=== PATIENT | female | born 1945 | race Caucasian/White ===

== ENCOUNTER 2019-09-11 18:55 | Inpatient (IN) ==
[2019-09-11] MEDS ORDERED: SOLU-MEDROL IV ONE (19:11)
[2019-09-11] MEDS ORDERED: XOPENEX NEB INH ONE (19:11)
[2019-09-11] MEDS ORDERED: NS NEB INH SCH (19:15)
[2019-09-11 19:19] LABS: ALLEN TEST YES; BE -4.7 mmoll (-3.0-3.0); BLOOD TYPE ARTERIAL; HCO3-(ACT) 21.1 mmoll (20.0-26.0); METHB 1.3 % (0.0-1.5); O2(CT) 17.7 mL/dL (15.0-23.0); O2HB 92.8 % (95.0-99.0); PCO2(98.6) 49 mmHg (35-45); PO2(98.6) 182 mmHg (60-100); SAMPLE BLOOD; SAO2 99.6 % (95.0-100.0); THB 13.3 g/dL (11.5-17.4); pH(98.6) 7.27 (7.35-7.45)
[2019-09-11 19:23] LABS: MODALITY BI PAP
--- NOTE | 2019-09-11 19:52 | Diag Imaging Result Doc PS360 ---
EXAM: CHEST-PORTABLE INDICATION: sob TECHNIQUE: One view COMPARISON: 10/10/2015 FINDINGS: There are large masslike lesions seen in the right midlung zone and the left lung apex. These are suspicious for neoplasm. There were not present on the previous study from 2016. There is no discrete pleural fluid collection or pneumothorax. The cardiomediastinal silhouette and central vasculature are grossly unremarkable. IMPRESSION: Large masses in the right midlung zone and left lung apex as described. Electronically signed by Yonas Diaz 09/11/2019 7:50 PM
[2019-09-11 20:03] LABS: BASO% 0.6 % (0.0-0.8); EOS# 0.45 X1000 (0.0-0.7); EOS% 2.9 % (0.0-10.0); HEMATOCRIT 43.1 % (37.0-47.0); HEMOGLOBIN 13.3 g/dL (12.0-16.0); IMM GRAN% 1.3 % (0.0-0.5); LYMPH# 3.11 X1000 (1.2-3.4); LYMPH% 19.9 % (20.5-51.1); MCHC 30.9 g/dL (33-37); MCV 87.6 FL (81-99); MONO# 1.22 X1000 (0.11-0.59); MONO% 7.8 % (1.7-9.3); MPV 10.2 FL (7.4-10.4); NEUT# 10.53 X1000 (1.4-6.5); NEUT% 67.5 % (42.2-75.2); PLT 355 X1000 (130-400); RBC 4.92 XMIL (4.2-5.4); RDW 14.4 % (11.5-14.5); WBC 15.61 X1000 (4.8-10.8)
[2019-09-11] MEDS ORDERED: ATIVAN IV ONE (20:12)
[2019-09-11] MEDS ORDERED: ZOSYN 4.5 GM in NS 100 ML IV ONE (20:20)
[2019-09-11] MEDS ORDERED: VANCOMYCIN 1 GM/NS 1 GM/250 ML IVPB IV ONE (20:20)
[2019-09-11] MEDS ORDERED: NS 1,000 ML IV ONE ×2 (20:22→21:15)
[2019-09-11 20:30] LABS: AGAP 18; ALB/GLOB RATIO 1.4; ALBUMIN 3.9 g/dL (3.5-5.0); ALKALINE PHOSPHATASE 103 U/L (32-104); BUN 13 mg/dL (8-22); CALCIUM 9.7 mg/dL (8.8-10.2); CHLORIDE 94 mmol/L (98-107); CK PROFILE 65 U/L (24-173); COSMO 292; CREATININE 1.3 mg/dL (0.5-0.9); ESTIMATED GFR 40; GOT 39 U/L (10-30); GPT 20 U/L (10-36); POTASSIUM 5.4 mmol/L (3.5-5.1); SODIUM 137 mmol/L (136-145); TCO2 25 mmol/L (25-35); TOTAL BILIRUBIN < 0.15 mg/dL (0.20-1.00); TOTAL PROTEIN 6.6 g/dL (6.3-8.3)
[2019-09-11 20:31] LABS: GLUCOSE 419 mg/dL (70-104)
[2019-09-11 20:43] LABS: ALLEN TEST YES; BE -7.2 mmoll (-3.0-3.0); BLOOD TYPE ARTERIAL; HCO3-(ACT) 19.3 mmoll (20.0-26.0); METHB 1.3 % (0.0-1.5); O2(CT) 17.8 mL/dL (15.0-23.0); PCO2(98.6) 44 mmHg (35-45); PO2(98.6) 188 mmHg (60-100); SAMPLE BLOOD; SAO2 99.8 % (95.0-100.0); pH(98.6) 7.26 (7.35-7.45)
[2019-09-11 20:45] LABS: MODALITY BI PAP
[2019-09-11 21:46] LABS: INR 0.95; PROTIME 12.8 Seconds (11.0-16.0); PTT 29.8 Seconds (22.3-41.8)
[2019-09-11] MEDS ORDERED: BENTYL IM ONE (23:19)
[2019-09-12] MEDS ORDERED: ZEMURON IV ONE (00:12)
[2019-09-12] MEDS ORDERED: AMIDATE IV ONE (00:12)
[2019-09-12] MEDS ORDERED: LEVOPHED 8 MG in D5 1/2 NS 250 ML IV SCH (00:15)
[2019-09-12] MEDS ORDERED: DIPRIVAN 1% IV STA (00:44)
[2019-09-12] MEDS ORDERED: DIPRIVAN 1% 1,000 MG/100 ML BOTTLE IV SCH (00:45)
[2019-09-12] MEDS ORDERED: DIPRIVAN 1% 100 ML IV SCH (00:45)
[2019-09-12] MEDS ORDERED: ATROPINE SYRINGE ONE ×2 (00:54→08:00)
[2019-09-12 02:00] LABS: ALLEN TEST YES; BE -7.4 mmoll (-3.0-3.0); BLOOD TYPE ARTERIAL; HCO3-(ACT) 19.2 mmoll (20.0-26.0); METHB 1.2 % (0.0-1.5); O2(CT) 15.6 mL/dL (15.0-23.0); PO2(98.6) 186 mmHg (60-100); SAMPLE BLOOD; SAO2 100.1 % (95.0-100.0); SRATE 14 BPM; THB 11.1 g/dL (11.5-17.4); TVOL 500 mL
[2019-09-12 02:02] LABS: MODALITY VENTILATOR; PCO2(98.6) 53 mmHg (35-45)
[2019-09-12] MEDS ORDERED: DUONEB (A & A) INH PRN (02:17)
[2019-09-12] MEDS ORDERED: LEVAQUIN 500 MG/D5W 500 MG/100 ML IVPB IV SCH (02:30)
[2019-09-12] MEDS ORDERED: SOLU-MEDROL IV SCH (02:30)
[2019-09-12] MEDS ORDERED: ZOSYN 3.375 GM in NS 50 ML IV SCH (02:30)
--- NOTE | 2019-09-12 02:41 | PROVIDER DOCUMENTATION ---
This chart was entered by Roxana Rowley Scribe, acting as scribe for Iris Mccartney MD. HPI-Respiratory General <Ac Villasenor - Last Filed: 09/12/19 07:34> - General Source: EMS, EMS notes reviewed - History of Present Illness-Resp Quality of Pain: reports: other (unable to state) <Iris Mccartney - Last Filed: 09/12/19 20:21> - General Chief Complaint: SEPSIS ALERT - D Stated Complaint: RESP. DISTRESS Time Seen by Provider: 09/11/19 19:06 Allergies/Adverse Reactions: Patient Allergies Allergy/AdvReac Type Severity Reaction Status Date / Time No Known Allergies Allergy Verified 10/10/15 03:22 Home Medications: Home Medication List Medication Instructions Recorded Confirmed Last Taken Type Albuterol Sulfate [Proair Hfa] 2 - 4 puff INH Q4H 10/10/15 10/10/15 10/09/15 History Amlodipine Besylate 5 mg PO DAILY 10/10/15 10/10/15 10/09/15 History Budesonide/Formoterol Fumarate 2 puff INH BID 10/10/15 10/10/15 10/09/15 History [Symbicort 160-4.5 Mcg Inhaler] Losartan Potassium 50 mg PO DAILY 10/10/15 10/10/15 10/09/15 History Meloxicam 15 mg PO DAILY 10/10/15 10/10/15 10/09/15 History Metformin [Glucophage] 500 mg PO BID 10/10/15 10/10/15 10/09/15 History Montelukast Sodium 10 mg PO DAILY 10/10/15 10/10/15 10/09/15 History Pantoprazole [Protonix] 40 mg PO DAILY 10/10/15 10/10/15 10/09/15 History CefDINIR [Omnicef] 300 mg PO BID #14 capsule 10/12/15 Unknown Rx Levofloxacin [Levaquin] 500 mg PO DAILY #7 tablet 10/12/15 Unknown Rx - History of Present Illness-Resp Nature of Presenting Problem: Patient with a h/o DM, HTN, Copd was transported to the ER today by EMS in respiratory distress. Patient was placed on bipap on arival at the ED. Further information could not be obtained from patient. Unable to mentain a conversation due to respiratory distress (Ianguor,Michaelpomudiar S.) Review of Systems - Adult - REVIEW OF SYSTEMS - ADULT ROS:: unobtainable per condition Constitutional: reports: no symptoms reported Respiratory: reports: see HPI <IanguMichael grubbspoaimeediar S. - Last Filed: 09/12/19 20:21> Past History - Adult - PAST MEDICAL HISTORY-ADULT Review of Records: reports: Nursing Assessment Review, Medications Reviewed, S ocial history reviewed & non-contributory. Cardiovascular: reports: HTN Respiratory: reports: COPD Genitourinary: reports: denies history Psychiatric: reports: denies history - SOCIAL HISTORY Smoking: cigarettes Substance Use: none/never Alcohol Use Frequency: occasionally <IanguMichael grubbspoaimeediar S. - Last Filed: 09/12/19 20:21> Physical Exam-General - PHYSICAL EXAM-ADULT Initial Vital Signs Reviewed: Yes - CONSTITUTIONAL General Appearance: moderate distress, severe distress (, increased work of breathing noted. on bipap), lethargic (slightly) - EYES Eyes: PERRL/EOMI - HEAD, EARS, NOSE, MOUTH & THROAT HENMT: normocephalic/atraumatic, moist mucous membranes - NECK Neck: non-tender, full range of motion, supple - RESPIRATORY Respiratory: decreased breath sounds, other (use of accessory muscles of respiration noted) - CARDIOVASCULAR Cardiovascular: no edema, tachycardia - GASTROINTESTINAL (ABDOMEN) Abdominal Exam: non tender, soft - MUSCULOSKELETAL Back Exam: no CVA tenderness Extremity: non-tender, no pedal edema - SKIN Integumentary: other (cold) - NEUROLOGIC Neurologic: other (not tested due to distress) - PSYCHIATRIC Psych/Mental Status: oriented x 3 <Michael Mccartneypoaimeediar S. - Last Filed: 09/12/19 20:21> Progress - PLAN OF CARE/RESULTS Result Diagrams: 09/11/19 19:30 09/11/19 19:30 <Ac Villasenor - Last Filed: 09/12/19 07:34> - PLAN OF CARE/RESULTS Result Diagrams: 09/11/19 19:30 09/11/19 19:30 - REASSESSMENT Reassessment #1 Time Reassessed: 23:30 Status: unchanged (still dyspneic, tarchycardic, becoming hypotensive though awake and tolerating bipap) Reassessment #2 Time Reassessed: 01:20 Status: worsening (Patient was intubated while in the ED and later noted to have bradycardia and had a faint femoral and carotid pulses. Bradycardia and hypotension improved with fluids and norepinephrine prior to ICU transfer) - EKG 1 Time of EKG reading by physician:: 21:18 EKG Interpretation (*Must complete 3 of following elements*): Abnormal (rate- 116 rhythm sinus tachy biatrial enlargement) - XRAY 1 XRAY Study: Chest ( EXAM: CHEST-PORTABLE INDICATION: sob TECHNIQUE: One view COMPARISON: 10/10/2015 FINDINGS: There are large masslike lesions seen in the right midlung zone and the left lung apex. These are suspicious for neoplasm. There were not present on the previous study from 2015. There is no discrete pleural fluid collection or pneumothorax. The cardiomediastinal silhouette and central vasculature are grossly unremarkable. IMPRESSION: Large masses in the right midlung zone and left lung apex as described. Electronically signed by Yonas Diaz 09/11/2019 7:50 PM) - CONSULTS/PCP/HOSPITALIST Notification #1 *Consult/PCP/Hospitalist*: Dr Beck Time Discussed: 00:35 Consult Disposition: Admit (accepts admission) <Iris Mccartney - Last Filed: 09/12/19 20:21> - PLAN OF CARE/RESULTS Progress/Plan/Lab Results: Laboratory Results - last 24 hr 09/11/19 09/11/19 09/11/19 19:30 19:30 19:30 PT 12.8 INR 0.95 PTT (Actin FS) 29.8 Specimen Type Sample Site pH pCO2 pO2 HCO3 Base Excess Oxyhemoglobin ABG O2 Sat (Calculated) ABG O2 Saturation ABG Carboxyhemoglobin ABG Methemoglobin Hernandez Test A-a O2 Difference Total Hemoglobin Lactate Blood Gas Modality Vent Mode Spontaneous Rate FiO2 % Tidal Volume PEEP Inspiratory BiPAP Expiratory BiPAP Sodium 137 Potassium 5.4 H Chloride 94 L Carbon Dioxide 25 Anion Gap 18 BUN 13 Creatinine 1.3 H Estimated GFR/1.73 m2 40 BUN/Creatinine Ratio 10 Glucose 419 H* Calculated Osmolality 292 Calcium 9.7 Total Bilirubin < 0.15 L AST 39 H ALT 20 Alkaline Phosphatase 103 Creatine Kinase 65 Iyp-J-Ugkwemviocn Pept 1090 H Total Protein 6.6 Albumin 3.9 Globulin 2.7 Albumin/Globulin Ratio 1.4 Plasma Lactate 09/11/19 09/12/19 09/12/19 20:34 01:05 01:51 PT INR PTT (Actin FS) Specimen Type ARTERIAL ARTERIAL Sample Site R RADIAL R FEMORAL pH 7.26 L 7.20 L pCO2 44 53 H* pO2 188 H 186 H HCO3 19.3 L 19.2 L Base Excess -7.2 L -7.4 L Oxyhemoglobin 95.0 97.0 ABG O2 Sat (Calculated) 17.8 15.6 ABG O2 Saturation 99.8 100.1 H ABG Carboxyhemoglobin 3.60 H 1.90 ABG Methemoglobin 1.3 1.2 Hernandez Test YES YES A-a O2 Difference 185.0 176.0 Total Hemoglobin 13.0 11.1 L Lactate 8.00 H* 6.60 H* Blood Gas Modality BI PAP VENTILATOR Vent Mode BIPAP A/C Spontaneous Rate 14 FiO2 % 60.0 60.0 Tidal Volume 500 PEEP 5.0 Inspiratory BiPAP 14.0 Expiratory BiPAP 6.0 Sodium Potassium Chloride Carbon Dioxide Anion Gap BUN Creatinine Estimated GFR/1.73 m2 BUN/Creatinine Ratio Glucose Calculated Osmolality Calcium Total Bilirubin AST ALT Alkaline Phosphatase Creatine Kinase Pwm-P-Aqwqhtofxsh Pept Total Protein Albumin Globulin Albumin/Globulin Ratio Plasma Lactate 6.6 H* Orders Category Date Time Status Admit [facility] Routine AdmDCTranf 09/12/19 02:09 Active Cardiac Monitoring DIRECTED Care 09/11/19 21:30 Active FSBS/Accucheck Result AC + HS Care 09/12/19 02:13 Active IV Insertion ORDERED Care 09/11/19 21:30 Active Neurological Check Q12-HR ASSESS Care 09/12/19 00:45 Active Notify MD of + Sepsis Screen NOW Care 09/11/19 21:30 Active Saline Loc NOW Care 09/11/19 19:11 Active Vital Signs Order Q1H Care 09/12/19 02:14 Active CHEST-1 VIEW [RAD] Stat Exams 09/12/19 00:43 Completed CHEST-PORTABLE [RAD] Stat Exams 09/11/19 19:37 Completed ABG [RESP] Routine Lab 09/11/19 19:12 Completed ABG [RESP] Routine Lab 09/11/19 20:34 Completed ABG [RESP] Routine Lab 09/12/19 01:51 Completed BLOOD CULTURE [BLDCUL] Stat Lab 09/11/19 00:08 Results BLOOD CULTURE [BLDCUL] Stat Lab 09/11/19 20:24 Results CBC WITH DIFF [HEME] Stat Lab 09/11/19 19:30 Completed CK PROFILE [SP CHEM] Stat Lab 09/11/19 19:30 Completed COMPREHENSIVE METABOLIC PANEL [CHEM] Stat Lab 09/11/19 19:30 Completed D-DIMER [COAG] Stat Lab 09/11/19 19:30 Completed LACTATE, PLASMA [CHEM] Stat Lab 09/11/19 19:30 Completed PRO B-NATRIURETIC PEPTIDE Stat Lab 09/11/19 19:30 Completed PROTIME WITH INR [COAG] Stat Lab 09/11/19 19:30 Completed PTT [COAG] Stat Lab 09/11/19 19:30 Completed TROPONIN T Stat Lab 09/11/19 19:30 Completed 0.9% Sodium Chloride Inj [Ns] 1,000 ml Med 09/11/19 20:22 Discontinued IV 999 mls/hr 0.9% Sodium Chloride Inj [Ns] 1,000 ml Med 09/11/19 21:15 Discontinued IV 999 mls/hr Albuterol 2.5MG/Ipratrop 0.5MG [Duoneb (A & A)] Med 09/12/19 02:17 D iscontinued 3 ml INH Q2H PRN PRN Albuterol 2.5MG/Ipratrop 0.5MG [Duoneb (A & A)] Med 09/12/19 03:30 Discontinued 3 ml INH RTQ4H Atropine Syringe Med 09/12/19 00:54 Discontinued 2 mg .ROUTE .STK-MED ONE Dextrose 5%-0.45% NaCl Inj [D5 1/2 Ns] 250 ml Med 09/12/19 00:15 Discontinued Norepinephrine [Levophed] 8 mg IV As Directed mls/hr Dicyclomine [Bentyl] Med 09/11/19 23:19 Discontinued 10 mg IM NOW ONE Enoxaparin [Lovenox] Med 09/13/19 09:00 Discontinued 40 mg SUBQ Q24H Etomidate [Amidate] Med 09/12/19 00:12 Discontinued 20 mg IV NOW ONE Insulin Human Regular [Humulin R] Med 09/12/19 07:00 Discontinued See Protocol SUBQ 0700,1100,1600,2100 Levalbuterol Neb [Xopenex Neb] Med 09/11/19 19:11 Discontinued 0.63 mg INH NOW ONE Levofloxacin 500 mg/D5w [Levaquin 500 mg/D5w] Med 09/12/19 02:30 Discontinued 500 mg in 100 ml IV Q24H Lorazepam [Ativan] Med 09/11/19 20:12 Discontinued 1 mg IV NOW ONE Methylprednisolone Sod Succ [Solu-Medrol] Med 09/11/19 19:11 Discontinued 125 mg IV NOW ONE Methylprednisolone Sod Succ [Solu-Medrol] Med 09/12/19 02:30 Discontinued 60 mg IV Q8H Piperacillin/Tazobactam [Zosyn] 3.375 gm Med 09/12/19 02:30 Discontinued 0.9% Sodium Chloride Inj [Ns] 50 ml IV Q6H Piperacillin/Tazobactam [Zosyn] 4.5 gm Med 09/11/19 20:20 Discontinued 0.9% Sodium Chloride Inj [Ns] 100 ml IV NOW Propofol [Diprivan 1%] Med 09/12/19 00:44 Discontinued 10 mg IV STAT STA Propofol [Diprivan 1%] Med 09/12/19 00:45 Discontinued 1,000 mg in 100 ml IV As Directed mls/hr Rocuronium [place] [Zemuron] Med 09/12/19 00:12 Discontinued 70 mg IV NOW ONE Sodium Chloride 0.9% Neb [Ns Neb] Med 09/11/19 19:15 Discontinued 5 ml INH DIRECTED Vancomycin 1 gm/Ns Med 09/11/19 20:20 Discontinued 1 gm in 250 ml IV NOW Aerosol Treatments Routine Oth 09/11/19 19:14 Completed Aerosol Treatments Routine Oth 09/12/19 02:19 Completed Aerosol Treatments Stat Oth 09/11/19 19:14 Completed Aerosol Treatments Stat Oth 09/12/19 02:19 Completed Oxygen Device Stat Oth 09/11/19 21:30 Completed Pulse Oximetry Stat Oth 09/11/19 19:11 Completed EKG [EKG] Stat Ther 09/11/19 19:11 Draft Transfer/Admit Order [TRANSFER] Routine Transfer 09/12/19 02:10 Completed ER supplemental note: called to ICU for code blue. Pt getting CPR using ACLS protocol and already intubated. Pt regained pulse after several rounds. Hospitalist present. Rigo Villasenor (Ac Villasenor) Patient continued to be in distress inspite of treatment. She had abnormal abg before and while on bipap with elevated lactate. Her tachycardia improved over time but remained dyspneic and becoming hypotensive. Decision was made to and patient was subsequently intubated and admitted Has elevated D- Dimer and CTA cancelled for now due to abnormal GFR (Iris Mccartney SMara) Procedures - INTUBATION Time of Intubation: 01:00 Intubation Method: orotracheal Equipment: Glidescope Tube Size (cm): 7.5 Pretreated with 100% Oxygen?: Yes Breath Sounds after Intubation: equal ETT Primary Tube Confirmation: Capnometry CO2 Change, Direct Visualization, Chest Rise and Fall, Tube placement verified on XRAY Intubation Complications: no complications Vent Settings: See Respiratory Therapy Notes Procedure Comment: give etomidate 10mg and rocuronium 50mg. Dr Villasenor was the supervising ph <Iris Mccartney S. - Last Filed: 09/12/19 20:21> Departure <Ac Villasenor - Last Filed: 09/12/19 07:34> - Departure Date of Disposition Decision: 09/12/19 Time of Disposition Decision: 00:25 Certified Medical Emergency: Emergent - Critical Care Note This patient required my direct & personal management of CC.: Yes Total Time (mins): 55 Critical Care Statement: This patient required my direct personal management to treat or rule out processes, the absence of which, could potentiallly result in sudden, clinically significant life or limb threatening deterioration. <Iris Mccartney S. - Last Filed: 09/12/19 20:21> - Departure DIAGNOSIS: COPD exacerbation, Mass of lung parenchyma, REANNA (acute kidney injury), Elevated d-dimer Respiratory failure Qualifiers: Chronicity: acute Respiratory failure complication: hypercapnia Qualified Code(s): J96.02 - Acute respiratory failure with hypercapnia Disposition: ADMITTED INPATIENT 09 Condition: Critical Attestation - Physician/ YIN Attestation Patient care was provided by Advanced Practice Provider:: No The physician spent face to face time with patient:: Yes Advanced Practice Provider documentation review:: Supervising physician onsite and consulted in the evaluation and care of this patient. The physician did have a face to face encounter with the patient. <Iris Mccartney - Last Filed: 09/12/19 20:21> Sepsis: Tissue Perfusion Assmt - Physical Exam Assessment Date: 09/12/19 Time Assessment Initialized: 02:16 Lung Sounds:: lungs clear Heart Sounds:: Regular Capillary Refill Time: Less Than 2 Seconds Peripheral Pulse Evaluation:: radial (R): 1+, radial (L): 1+ Skin Exam:: other (cold, clamy extremits) - Impression Impression:: Tissue Perfusion Inadequate (improving) - Plan Plan:: See Orders <Iris Mccartney - Last Filed: 09/12/19 20:21> - Physical Exam Vital Signs: Last Vital Signs Temp 94.4 F L 09/12/19 03:14 Pulse 66 09/12/19 06:12 Resp 14 09/12/19 06:12 BP 88/58 09/12/19 06:12 Pulse Ox 100 09/12/19 06:12 Height 5 ft 2 in Weight 128 lb 09/12/19 02:18 02 sat 94 spo2 100% intubated BP 111/67 on vasopressor spo2 16 Abnormal post intubation ABG with high lactate (Iris Mccartney) This chart was documented by the indicated scribe, (Roxana Rowley Scribe) and accurately reflects the services I performed and decisions made by me, Iris Mccartney MD, as attested by the provider's signature.
[2019-09-12] MEDS ORDERED: DUONEB (A & A) INH SCH (03:30)
[2019-09-12 04:54] LABS: ALLEN TEST YES; BE -6.3 mmoll (-3.0-3.0); BLOOD TYPE ARTERIAL; METHB 1.6 % (0.0-1.5); O2(CT) 15.7 mL/dL (15.0-23.0); O2HB 96.3 % (95.0-99.0); PCO2(98.6) 40 mmHg (35-45); PO2(98.6) 169 mmHg (60-100); SAMPLE BLOOD; SAO2 99.7 % (95.0-100.0); THB 11.3 g/dL (11.5-17.4)
[2019-09-12 05:00] LABS: MODALITY AMBU BAG
--- NOTE | 2019-09-12 05:20 | EKG Report ---
Test Performed on : 09/11/2019 9:18:26 PM Test Reason : dyspnea Blood Pressure : / mmHG Vent. Rate : 116 BPM Atrial Rate : 116 BPM P-R Int : 136 ms QRS Dur : 076 ms QT Int : 304 ms P-R-T Axes : 084 076 095 degrees QTc Int : 422 ms Sinus tachycardia. Biatrial enlargement Abnormal ECG When compared with ECG of 10-OCT-2015 03:15, Borderline criteria for Inferior infarct are no longer present Unconfirmed Result
[2019-09-12 06:14] VITALS: BP 88/58
[2019-09-12] MEDS ORDERED: HUMULIN R SUBQ SCH (07:00)
--- NOTE | 2019-09-12 07:35 | Diag Imaging Result Doc PS360 ---
EXAM: CHEST-1 VIEW 09/12/2019 HISTORY: ETT placement TECHNIQUE: AP supine chest at 0049 on 09/12/2019. COMMENT: There are bilateral lung masses in the left apex and right upper lobe or superior segment. There is an endotracheal tube with its tip slightly below the thoracic inlet. Compared to 09/11/2019 there has been no appreciable change. IMPRESSION: Bilateral large lung masses. Electronically signed by Karan Noguera 09/12/2019 7:32 AM
[2019-09-12] MEDS ORDERED: EPINEPHRINE SYRINGE ONE (08:00)
[2019-09-12] MEDS ORDERED: CALCIUM CHLORIDE SYRINGE ONE (08:00)
--- NOTE | 2019-09-12 14:40 | HISTORY AND PHYSICAL ---
HISTORY OF PRESENT ILLNESS: Ms. Jessica Sawant is a 74-year-old female, who has a history of hypertension, COPD. Diabetes mellitus. No history could be obtained from the patient. The patient was intubated and placed on mechanical ventilation in the ED .x-ray of the chest at the time of presentation showed evidence of large masses in the right midlung zone as well as the left apex. The patient required pressors and has been admitted to the intensive care unit for further management. Following arrival to the ICU, patient developed cardiopulmonary arrest. She was noted to be in PEA and this was managed accordingly with ROSC. No family could be reached to update them with recent changes in patient's medical condition. PAST MEDICAL HISTORY: Hypertension, COPD, as well as diabetes. PAST SURGICAL HISTORY: Includes that of tonsillectomy. ALLERGIES: No known drug allergies. SOCIAL HISTORY: Patient does have a history of cigarette smoking. MEDICATIONS: Include: 1. Albuterol sulfate 2 to 4 puffs q.4 hours. 2. Norvasc 5 mg p.o. daily. 3. Symbicort 2 puffs twice a day. 4. Losartan 50 mg p.o. daily. 5. Meloxicam 15 mg p.o. once a day. 6. Singular 10 mg daily. 7. Pantoprazole 40 mg p.o. daily. 8 Levofloxacin 400 mg p.o. daily. REVIEW OF SYSTEMS: Could not be obtained from the patient. PHYSICAL EXAMINATION: VITAL SIGNS: Temperature 94.4 degrees, pulse 66, respiratory rate 19, blood pressure 70/32, oxygen saturation 100%. HEENT: Atraumatic normocephalic. Pupils equal, nonreactive to light. She is anicteric. No oral lesions. NECK: No lymphadenopathy. CARDIOVASCULAR: S1, S2. RESPIRATORY: Has evidence of no rales or rhonchi. ABDOMEN: Soft, nontender. No masses felt. EXTREMITIES: No evidence of edema. CENTRAL NERVOUS SYSTEM: The patient is unresponsive. LABORATORY DATA: WBC is 15.61, hematocrit is 43.1, with a platelet count of 255,000. INR is 0.9. ABG 7.26/44/188/95%. Sodium is 130, potassium 5.4, chloride 94, bicarb 25, BUN is 13. Creatinine 1.3. Blood glucose is 419. ASSESSMENT AND PLAN: 1. Acute respiratory failure. Most likely secondary to pulmonary masses as well as chronic obstructive pulmonary disease. Maintain patient on ventilator support. Ventilator changes to be done based on patient's ABG as well as clinical status. Consult Pulmonology. Patient is s/p cardiac arrest . Post cardiac arrest care accordingly. 2. Septic shock. Wound maintain patient on antibiotics, intravenous fluids and also pressors. Follow up on cultures. 3. Chronic obstructive pulmonary disease. Nebulized bronchodilators along with steroids and also antibiotics. 4. Diabetes mellitus. Monitor blood sugar levels and maintain patient on sliding scale insulin. Check hemoglobin A1c level. 5. Acute kidney injury. Maintain patient on intravenous fluids. Follow up on renal functions. 6. Deep vein thrombosis prophylaxis. Lovenox. 7. Gastrointestinal prophylaxis. Proton pump inhibitor. cc: Rodrigo Melton MD MTDD
[2019-09-13] MEDS ORDERED: LOVENOX SUBQ SCH (09:00)
--- NOTE | 2019-09-13 09:13 | PROGRESS NOTE ---
DATE: 09/12/2019. Late Entry Critical Care Progress Note. At approximately 4:10 on 09/12/2019, a code blue was called due to the patient's blood pressure did decrease as well as her oxygen saturations. She was showing oxygen saturation of 40% on the ventilator at 100% FIO2. She was on a Levophed drip as well. She was noted to have initially a weak pulse that was thready, though did ultimately lose a pulse. She had no palpable pulse present. She was showing PEA on the monitor. The nurse did call a code blue. CPR was started. ACLS protocol was initiated. The patient did receive three 1 mg ampules of epinephrine as well as sodium bicarbonate 8.4%, 50 mL ampule IV push as well. She did receive a 1 L normal saline bolus also and her Levophed drip at that time was increased. The patient did have return of ROSC at 4:20 with a heart rate of 98, that was a sinus rhythm on the bedside monitor. I myself was the initial responder to the code, though Dr. Melton, the patient's attending physician and physician that admitted her just earlier in the evening as well as the ER physician, Dr. Villasenor, did respond to the code as well. Dr. Melton, her attending physician, was updated on the patient's events that led up to just prior to her coding and her current condition at this time. We have ordered STAT labs of arterial blood gases, BMP, magnesium, CK and troponin. We also did order an EKG as well. The patient, at this time, does still have good auscultated bilateral lung sounds, though she does have coarse crackles noted bilaterally in full lung wray. Vital signs just after post-code did show a heart rate in the 90s, and sinus rhythm on the monitor. Respirations were being provided per mechanical ventilator. Blood pressure was showing to be elevated in the 190s systolically. We have informed the nurse to decrease the Levophed dose some. We will await laboratory results and EKG results. Further orders and recommendations pending hospital course, diagnostic studies, and physician evaluation. Dictated by FREEDOM Lopez for Rodrigo Melton MD cc: Rodrigo Melton MD Patient was seen and examined by me. She went into PEA soon after admission to the unit, ACLS protocol was initiated with ROSC. Family could not be immediately reached because of insufficient family contact information. . GINNY
--- NOTE | 2019-09-13 10:34 | DISCHARGE SUMMARY ---
ADMISSION DATE: 09/12/2019 DISCHARGE DATE: 09/12/2019 DISCHARGE DIAGNOSES: 1. Respiratory failure. 2. Shock, possible septic shock. 3. Large masses in the right mid lung son and left lung apex suspicious for neoplasm. 4. Previous hospitalization with chronic obstructive pulmonary disease exacerbation. 5. Diabetes. 6. History of hypertension. HOSPITAL COURSE: 74-year-old female with an apparent medical history of diabetes, hypertension, COPD. She presented to the emergency department due to respiratory distress. Initially, she was placed on the BiPAP machine and after that she was intubated. Her last visit was in 2015 and was admitted due to COPD, I do not have any family members at the bedside. I do not have any family members listed on her chart. We do have a laboratory that showed leukocytosis, elevated lactic acid, respiratory and metabolic acidosis, kidney injury, elevated glucose level, hyperkalemia, hypochloremia. This patient had a cardiac arrest and was successfully resuscitated. This happened today 09/12/2019 at 4:10 a.m. and a code lasted 10 minutes. The end of the code was at 4:20 a.m. As per the report her pupils after that were fixed and no gag reflex. A new code blue was called at 7 a.m. We followed the ACLS protocol. She received bicarbonate and calcium as well on top of multiple rounds of epinephrine. She was on pressors when I evaluated this patient already. Given her current presentation we have decided to stop the chest compressions and the protocol at 7:20 a.m. This patient at 7:20 a.m. on 09/12/2019. cc: Delmar Capellan MD
== END 2019-09-12 07:20 | disposition expired | DRG 871 ==
LOC: ED 18:55 → SUATTDRO 09-12 02:41 → ICU 09-12 02:41
PROVIDERS: ATTEND Internal Medicine